=== PATIENT | male | born 1935 | race Caucasian/White ===

== ENCOUNTER 2019-12-17 12:33 | Observation (INO) | payer OTHER ==
[~2019-12-17] VITALS: Ht 152.4 cm; Wt 66.8 kg
--- NOTE | 2019-12-17 12:50 | NUR ---
EKG IN PROGRESS.
--- NOTE | 2019-12-17 12:59 | NUR ---
PLACED IN BED 5 FOR EVAL.
--- NOTE | 2019-12-17 13:02 | NUR ---
PT HERE TO ED FOR MULTIPLE COMPLAINTS, SEE ED ASSESSMENT. PT DAUGHTER STS HX CARDIAC STENTS AND "A LOT" OF CVA. PT DENIES ANY RECENT FEVERS AND/OR RECENT TRAUMA AND/OR INJURY, PT DENIES ANY LOC, PT DENIES ANY ACTIVE BLEEDING, PT AAOX4, RESPIRATIONS EVEN AND UNLABORED, ABD SOFT FLAT NONDISTENDED, TENDERNESS NOTED TO RLQ UPON PALPATION, PT ON FULL CM, NSR, WITH DAUGHTER AT BEDSIDE
--- NOTE | 2019-12-17 13:06 | NUR ---
MD TITUS AT BEDSIDE PERFORMING MSE
--- NOTE | 2019-12-17 13:35 | NUR ---
PORTABLE CXR AT BEDSIDE
[2019-12-17 13:57] LABS: BASOPHIL % 0.4 % (0-2); PLATELET COUNT 215 x10^3mcL (130-400); RED CELL DISTRIBUTION WIDTH 14.4 % (11.5-14.5)
[2019-12-17 13:58] LABS: CARBON DIOXIDE 24.4 mmol/L (21-32); CHLORIDE SERUM 108 mmol/L (98-107); SODIUM SERUM 143 mmol/L (136-145)
[2019-12-17 13:59] LABS: ALBUMIN 3.3 g/dL (3.4-5.0); ALKALINE PHOSPHATASE 57 U/L (46-116); ALT/SGPT 11 U/L (16-63); AST/SGOT 15 U/L (15-37); BILIRUBIN TOTAL 0.47 mg/dL (0.20-1.00); CALCIUM 8.8 mg/dL (8.5-10.1); CREATININE SERUM 1.1 mg/dL (0.7-1.3); GLUCOSE SERUM 85 mg/dL (74-106); TOTAL PROTEIN, SERUM 6.6 g/dL (6.4-8.2)
--- NOTE | 2019-12-17 14:40 | NUR ---
PER JARROD RN, HE ONLY ADMIN 1 0.4MG NITRO SL
--- NOTE | 2019-12-17 14:41 | NUR ---
PT RESTING IN POSITION OF COMFORT, RESPIRATIONS EVEN AND UNLABORED, NS BOLUS INFUSING PER EMAR, NSR ON CM, VSS, DAUGHTER AND AT BEDSIDE, CALL LIGHT WITHIN REACH
--- NOTE | 2019-12-17 15:40 | NUR ---
PT RESTING IN POSITION OF COMFORT, RESPIRATIONS EVEN AND UNLABORED, VSS, DAUGHTER AND AT BEDSIDE, PT IN NAD AT THIS TIME
[2019-12-17] MEDS ORDERED: NATURE'S BLEND F1 MG PO (17:27)
[2019-12-17] MEDS ORDERED: ULTRAM50 MG PO (17:28)
[2019-12-17] MEDS ORDERED: HORIZANT300 MG PO (17:28)
[2019-12-17] MEDS ORDERED: CARBIDOPA AND L1 TER PO (17:28)
[2019-12-17] MEDS ORDERED: FENOFIBRATE MIC43 MG PO (17:29)
[2019-12-17] MEDS ORDERED: COZAAR100 MG PO (17:29)
[2019-12-17] MEDS ORDERED: PRAMIPEXOLE E2.25 MG PO (17:30)
[2019-12-17] MEDS ORDERED: ASPIR 8181 MG PO (17:30)
--- NOTE | 2019-12-17 18:48 | NUR ---
USHA CARDENAS, TELE, GIVEN REPORT TO RESUME CARE OF PT UPON ADMISSION
--- NOTE | 2019-12-17 19:18 | NUR ---
[facility], CAME IN DUE TO CHEST PAIN X2 WEEKS. AAOX3 (PERSON, PLACE, BIRTHDATE, AND SITUATION). ABLE TO FOLLOW COMMANDS. NO ARM DRIFT/FACIAL DROOP. DENIES CHEST PAIN/PRESSURE, SR W/ BBB AND DEPRESSED ST. NO SOB NOTED, LUNG SOUNDS CTA, O2 AHT=101% ON 2LPM/NC. DENIES ABDOMINAL DISCOMFORT. BOWEL SOUNDS ACTIVE. VOIDS. ABLE TO MOVE ALL EXTREMITIES. AMBULATORY. IV SITE PATENT AND INTACT. SIDE RAILS UPX2. CALL LIGHT ON REACH. ENDORSED TO PRIMARY NURSE DIPAK FOR CONTINUITY OF CARE
--- NOTE | 2019-12-17 19:30 | NUR ---
RECEIVED PT FROM JHOANA CARDENAS, TAKING OVER CONTINUITY OF CARE FOR PT. PT IS RESTING COMFORTABLY, DROWSY BUT AROUSABLE. DANISH SPEAKING ONLY. GRANDAUGHTER AND AT BEDSIDE TO HELP WITH TRANSLATION. DENIES PAIN AT THIS TIME. ORIENTED PT TO ROOM AND SURROUNDINGS. BED IN LOWEST POSITION. CALL LIGHT WITHIN REACH. WILL CONTINUE TO MONITOR.
[2019-12-17 20:00] VITALS: BP 171/85
[2019-12-17 20:09] VITALS: Ht 152.4 cm; Wt 66.8 kg
--- NOTE | 2019-12-17 21:37 | NUR ---
ROUTINE MEDICATIONS ADMINISTERED AND TOLERATED WELL. NO ACUTE DISTRESS NOTED. BREATHING IS EVEN AND UNLABORED ON 2LNC. DENIES SOB. DENIES PAIN AT THIS TIME. BED IN LOWEST POSITION. CALL LIGHT WITHIN REACH. WILL CONTINUE TO MONITOR.
[2019-12-17 21:44] VITALS: BP 136/62
--- NOTE | 2019-12-17 23:34 | NUR ---
PT IS RESTING COMFORTABLY IN BED WITH EYES CLOSED, BUT EASILY AROUSABLE WHEN SPOKEN TO. BREATHING IS EVEN AND UNLABORED ON 2LNC. NO RESP DISTRESS NOTED. BED IN LOWEST POSITION. CALL LIGHT WITHIN REACH. WILL CONTINUE TO MONITOR.
--- NOTE | 2019-12-18 01:38 | NUR ---
PT RESTING COMFORTABLY IN BED WITH EYES CLOSED, BUT EASILY AROUSABLE WHEN SPOKEN TO. BREATHING IS EVEN AND UNLABORED ON 2LNC. NO SIGNS OF RESP. DISTRESS. BED IN LOWEST POSITION. CALL LIGHT WITHIN REACH. WILL CONTINUE TO MONITOR.
[2019-12-18 06:14] VITALS: BP 130/53
[2019-12-18 06:40] LABS: CALCIUM 8.4 mg/dL (8.5-10.1); CHLORIDE SERUM 108 mmol/L (98-107); CREATININE SERUM 1.1 mg/dL (0.7-1.3); GLUCOSE SERUM 79 mg/dL (74-106); SODIUM SERUM 142 mmol/L (136-145)
[2019-12-18 06:45] LABS: BASOPHIL % 0.4 % (0-2); PLATELET COUNT 199 x10^3mcL (130-400)
--- NOTE | 2019-12-18 06:56 | NUR ---
PT SLEPT IN LONG INTERVALS THROUGHOUT THE NIGHT AND COMPLIED WITH NURSING CARE WITH NO ACUTE EVENTS OCCURRING DURING THE SHIFT. COMFORT AND SAFETY MAINTAINED. ALL NEEDS ASSESSED AND ATTENDED TO. WILL CONTINUE TO MONITOR AND ENDORSE CARE TO DAY SHIFT NURSE.
[2019-12-18 06:59] LABS: RED CELL DISTRIBUTION WIDTH 14.7 % (11.5-14.5)
--- NOTE | 2019-12-18 07:05 | NUR ---
RECIEVED PT RESTING IN BED WITH NO C/O PAIN OR DISTRESS. A/O X3 WITH NO DESIR OR DIZZINESS. TELE#21 CONNECTED TO PT, DENIES ANY CP OR PRESSURE. PT ON 2 LPMO2 NC, NO SOB NOTED. LAC IV CDI AND PATENT. FAMILY AT BEDSIDE. SAFETY PRECAUTIONS IN PLACE, CALL LIGHT WITHIN REACH, WILL MONITOR.
[2019-12-18 08:15] VITALS: BP 143/63
--- NOTE | 2019-12-18 10:30 | NUR ---
PT STABLE WITH NO C/O PAIN OR SOB. SAFETY PRECAUTIONS IN PLACE. CALL LIGHT WITHIN REACH, WILL MONITOR.
[2019-12-18 12:48] VITALS: BP 132/57
[2019-12-18 13:33] VITALS: BP 143/63
--- NOTE | 2019-12-18 14:00 | NUR ---
PT SLOWLY WEANED OFF AXYGEN AND TOLERATED WELL. SATURATION AT 96-97% ON RA . NO DISTRESS NOTED.
--- NOTE | 2019-12-18 14:52 | NUR ---
PT STABLE FOR DISCHARGE PER MD ORDER. VS WNL AND NO SOB NOTED. ALL DISCHARGE INSTRUCTIONS, EDUCATION, AND PRESCRIPTIONS GIVEN TO PT AND FAMILY , ALL VERBLAIZE UNDERSTANDING. IV REMOVED WITH CATHETER INTACT, NO REDNESS OR INFLAMMATION NOTED TO SITE. ID BAND REMOVED FROM PT ARM. TELE BOX #21 RETURNED TO MT STATION. PT ESCORTED DOWN TO LOBBY VIA WC BY ICT EDUCATOR AND FAMILY ATSIDE. ALL PERSONAL BELONGINGS IN HAND.
--- NOTE | 2019-12-18 14:55 | NUR ---
PT SLOWLY WEANED OFF AXYGEN AND TOLERATED WELL. SATURATION AT 96-97% . NO DISTRESS NOTED.
--- NOTE | 2019-12-19 08:22 | NUR ---
ECHOCARDIOGRAM NOT DONE, PT DISCHARGED.
== END 2019-12-18 15:21 | disposition home or self-care (01) ==
LOC: ED 12:33 → DU 17:36
PROVIDERS: Emergency Medicine; ADMIT Internal Medicine Pulmonary Disease
DX: R07.89 Other chest pain (principal); I25.10 Atherosclerotic heart disease of native coronary artery without angina pectoris; I10 Essential (primary) hypertension; E78.5 Hyperlipidemia, unspecified; Z23 Encounter for immunization
CPT/HCPCS: 83880; 90658; G0378; J7030; Q0092